=== PATIENT | male | born 1995 | race Caucasian/White ===

== ENCOUNTER → 2020-12-04 14:54 | Outpatient (ROUT) | payer BC, SELFPAY ==
[2020-12-04 16:26] LABS: Urine N gonorrhoeae NOT DETECTED
[2020-12-04 16:44] LABS: Urine Chlamydia NOT DETECTED
== END ==
PROVIDERS: Visit Provider Nurse Practitioner Family
DX: Z13.9 Encounter for screening, unspecified (principal)
CPT/HCPCS: 87491; 87591

== ENCOUNTER → 2020-12-08 15:15 | Outpatient (CLI) | payer BC, SELFPAY ==
[2020-12-09 04:41] LABS: HSV 2 IGG AB < 0.91 index (0.00-0.90); HSV1IGG < 0.91 index (0.00-0.90)
[2020-12-09 16:30] LABS: Hep C Virus Ab w/Reflex Quant NEGATIVE s/c (NEGATIVE); Hepatitis B Surface Antigen NEGATIVE s/c (NEGATIVE)
[2020-12-09 18:17] LABS: HSV I/II IgM <0.91 Ratio (0.00-0.90)
== END ==
PROVIDERS: Referring Provider Nurse Practitioner Family; Visit Provider Nurse Practitioner Family
DX: Z72.51 High risk heterosexual behavior (principal)
CPT/HCPCS: 36415; 86694; 86695; 86696; 86803; 87340

== ENCOUNTER 2021-03-11 14:37 | Emergency (ER) | payer BC, SELFPAY ==
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
[2021-03-11 14:47] VITALS: BP 152/65; PULSE 101; RESP 20; TEMP 36.9; O2SAT 98; BMI 24.5
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
[2021-03-11 16:57] VITALS: BP 128/72; PULSE 79; RESP 20; O2SAT 99
== END 2021-03-11 16:59 | disposition home or self-care (01) ==
PROVIDERS: Emergency Provider Emergency Medicine; PCP Specialist
DX: S16.1XXA Strain of muscle, fascia and tendon at neck level, initial encounter (principal); S30.811A Abrasion of abdominal wall, initial encounter; Z87.891 Personal history of nicotine dependence; V28.0XXA Motorcycle driver injured in noncollision transport accident in nontraffic accident, initial encounter
CPT/HCPCS: 70450; 72125; 99284

== ENCOUNTER → 2021-04-21 15:41 | Outpatient (CLI) | payer BC, SELFPAY ==
[2021-04-21 17:00] LABS: Add Manual Diff / Slide Review NO; Basophils Absolute Auto 100 /uL (0-100); Basophils Percent Auto 0.9 % (0-2); Eosinophils Absolute Auto 100 /uL (0-450); Eosinophils Percent Auto 1.7 % (2-4); Hematocrit 45.8 % (41-53); Hemoglobin 15.6 g/dL (13.5-17.5); Lymphocytes Absolute Auto 3900 /uL (1100-4500); Lymphocytes Percent Auto 46.2 % (25-40); Mean Corpuscular HGB Conc 34.1 % (30-36); Mean Corpuscular Hemoglobin 28.6 PG (26-34); Mean Corpuscular Volume 83.8 fL (80-100); Monocytes Absolute Auto 600 /uL (0-900); Monocytes Percent Auto 6.9 % (3-14); Neutrophils Absolute Auto 3700 /uL (1500-7000); Neutrophils Percent Auto 44.3 % (50-75); Platelet Count 288 X10^3/uL (150-400); Red Blood Cell Count 5.46 X10^6/uL (4.5-5.9); Red Cell Distribution Width 12.4 % (11.6-14.8); White Blood Cell Count 8.4 X10^3/uL (4.5-11.0)
[2021-04-21 17:17] LABS: Alanine Aminotransferase 20 IU/L (<50); Albumin 5.4 g/dL (3.5-5.0); Albumin Globulin Ratio 1.5 (1.0-2.8); Alkaline Phosphatase 56 U/L (38-126); Aspartate Aminotransferase 32 IU/L (17-59); BUN Creatinine Ratio 18.8 (6-22); Bilirubin Total 0.4 mg/dL (0.2-1.3); Blood Urea Nitrogen 19 mg/dL (9-20); Calcium 9.6 mg/dL (8.4-10.2); Carbon Dioxide 26 mmol/L (22-32); Chloride 104 mmol/L (98-107); Estimated Glomerular Filt Rate > 60.0 mL/min (>60); Globulin 3.5 g/dL (1.7-4.1); Glucose 84 mg/dL (70-100); HEMOLYSIS < 15 (0-50); Potassium 3.5 mmol/L (3.4-5.1); Sodium 139 mmol/L (137-145); Total Protein 8.9 g/dL (6.3-8.2)
[2021-04-21 17:46] LABS: Appearance Urine UA CLEAR; Bilirubin Urine UA NEGATIVE (NEGATIVE); Color Urine UA YELLOW; Glucose Urine UA NEGATIVE (Negative); Ketones Urine UA NEGATIVE (NEGATIVE); Leukocyte Esterase Urine UA NEGATIVE (NEGATIVE); Nitrite Urine UA NEGATIVE (Negative); Occult Blood Urine UA NEGATIVE (Negative); Protein Urine UA NEGATIVE (Negative); Specific Gravity Urine UA <=1.005 (1.000-1.035); Urobilinogen Urine UA 0.2 E.U./dL (0.2); pH Urine UA 5.5 (4.5-8.0)
[2021-04-21 17:48] LABS: Testosterone 145 ng/dL (132-813)
[2021-04-21 18:18] LABS: Bacteria Urine None Seen; Culture Indicated Urine Cult Not Indicated; RBC Urine None Seen (0-5/HPF); Thyroid Stimulating Hormone 2.72 uIU/mL (0.47-4.68); Urine Comments Microscopic Normal; WBC Urine None Seen (0-5/HPF)
[2021-04-21 19:14] LABS: Urine N gonorrhoeae NOT DETECTED
[2021-04-21 19:57] LABS: Urine Chlamydia NOT DETECTED
[2021-04-22 08:59] LABS: EBV Virus IgG Ab > 600.0 U/mL (0.0-17.9); EBV Virus IgM Ab < 36.0 U/mL (0.0-35.9); RPR Screen Non Reactive (Non Reactive)
[2021-04-24 20:54] LABS: HIV 1 & 2 Ab/Ag 4th Gen Combo NEGATIVE (NEGATIVE)
[2021-04-25 09:19] LABS: Follicle Stimulating Hormone 5.45 mIU/mL; Luteinizing Hormone 8.98 mIU/mL
== END ==
PROVIDERS: PCP Specialist; Referring Provider Specialist; Visit Provider Specialist
DX: R53.83 Other fatigue (principal)
CPT/HCPCS: 36415; 80053; 81001; 83001; 83002; 84403; 84443; 85025; 86592; 86664; 86665; 87389; 87491; 87591

== ENCOUNTER → 2021-05-12 09:06 | Outpatient (CLI) | payer BC, SELFPAY ==
[2021-05-12 10:28] LABS: Reticulocyte Count, Percent 1.2 % (0.9-2.6)
[2021-05-12 11:17] LABS: HEMOLYSIS < 15 (0-50); Iron 87 ug/dL (49-181)
[2021-05-12 11:27] LABS: Percent Iron Saturation 24 % (20-50); Total Iron Binding Capacity 367 ug/dL (261-462); Transferrin 278 mg/dL (206-381)
[2021-05-12 11:33] LABS: Free T4, Direct Thyroxine 1.07 ng/dL (0.78-2.19)
[2021-05-12 11:47] LABS: Cortisol AM (Before 10AM) 13.3 ug/dL (4.46-22.7)
[2021-05-12 11:52] LABS: Ferritin 64 ng/mL (18-464)
[2021-05-12 12:23] LABS: Folate > 20.0 ng/mL (2.76-20.0)
[2021-05-13 18:35] LABS: Growth Hormone < 0.1 ng/mL (0.0-10.0)
[2021-05-16 06:36] LABS: Testosterone Free 14.46 ng/dL (5.00-21.00); Testosterone Total 301.3 ng/dL (264.0-916.0)
== END ==
PROVIDERS: PCP Specialist; Referring Provider Specialist; Visit Provider Specialist
DX: E29.1 Testicular hypofunction (principal)
CPT/HCPCS: 36415; 82533; 82728; 82746; 83540; 83550; 84270; 84402; 84403; 84439; 85045; 86277

== ENCOUNTER → 2021-06-23 09:21 | Outpatient (CLI) | payer BC, SELFPAY ==
[2021-06-23 10:58] LABS: Testosterone 401 ng/dL (132-813)
== END ==
PROVIDERS: PCP Specialist; Referring Provider Specialist; Visit Provider Specialist
DX: E29.1 Testicular hypofunction (principal)
CPT/HCPCS: 36415; 84403

== ENCOUNTER → 2022-01-28 10:30 | Outpatient (ROUT) | payer BC, SELFPAY ==
[2022-01-28 12:03] LABS: Urine Chlamydia NOT DETECTED; Urine N gonorrhoeae NOT DETECTED
== END ==
PROVIDERS: PCP Specialist; Visit Provider Nurse Practitioner Family
DX: Z11.3 Encounter for screening for infections with a predominantly sexual mode of transmission (principal)
CPT/HCPCS: 87491; 87591

== ENCOUNTER → 2022-04-13 07:20 | Outpatient (CLI) | payer BC, SELFPAY ==
[2022-04-13 09:08] LABS: Hematocrit 46.4 % (41-53); Hemoglobin 15.9 g/dL (13.5-17.5)
[2022-04-13 09:30] LABS: Alanine Aminotransferase 20 IU/L (<50); Albumin 4.5 g/dL (3.5-5.0); Albumin Globulin Ratio 1.6 (1.0-2.8); Alkaline Phosphatase 50 U/L (38-126); Aspartate Aminotransferase 28 IU/L (17-59); BUN Creatinine Ratio 18.8 (6-22); Bilirubin Total 0.5 mg/dL (0.2-1.3); Blood Urea Nitrogen 16 mg/dL (9-20); Carbon Dioxide 27 mmol/L (22-32); Chloride 103 mmol/L (98-107); Estimated Glomerular Filt Rate > 60 mL/min (>60); Globulin 2.9 g/dL (1.7-4.1); Glucose 82 mg/dL (70-100); HEMOLYSIS < 15 (0-50); Potassium 4.4 mmol/L (3.4-5.1); Sodium 141 mmol/L (137-145); Total Protein 7.4 g/dL (6.3-8.2)
[2022-04-13 09:46] LABS: Follicle Stimulating Hormone 4.53 mIU/mL; Luteinizing Hormone 5.43 mIU/mL
[2022-04-13 10:30] LABS: Prolactin 13.9 ng/mL (3.7-17.9)
[2022-04-13 10:44] LABS: Prostate Specific Antigen 0.413 ng/mL (0.10-4.00)
[2022-04-13 15:37] LABS: Ferritin 67 ng/mL (18-464)
[2022-04-29 21:37] LABS: Percent Free Testosterone 2.34 % (1.50-4.20); Testosterone Free 4.68 ng/dL (5.00-21.00)
== END ==
PROVIDERS: PCP Specialist; Referring Provider Internal Medicine Endocrinology, Diabetes & Metabolism; Visit Provider Internal Medicine Endocrinology, Diabetes & Metabolism
DX: E29.1 Testicular hypofunction (principal)
CPT/HCPCS: 36415; 80053; 82728; 83001; 83002; 84146; 84153; 84402; 84403; 85014; 85018

== ENCOUNTER → 2022-04-27 07:35 | Outpatient (CLI) | payer BC, SELFPAY ==
[2022-05-10 07:43] LABS: Percent Free Testosterone 4.82 % (1.50-4.20); Testosterone Free 13.82 ng/dL (5.00-21.00); Testosterone Total 286.8 ng/dL (264.0-916.0)
== END ==
PROVIDERS: PCP Specialist; Referring Provider Internal Medicine Endocrinology, Diabetes & Metabolism; Visit Provider Internal Medicine Endocrinology, Diabetes & Metabolism
DX: E29.1 Testicular hypofunction (principal)
CPT/HCPCS: 36415; 84402; 84403

== ENCOUNTER → 2022-07-20 07:38 | Outpatient (CLI) | payer BC, SELFPAY ==
[2022-07-20 08:01] LABS: Hematocrit 46.7 % (41-53); Hemoglobin 15.6 g/dL (13.5-17.5)
== END ==
PROVIDERS: PCP Specialist; Referring Provider Internal Medicine Endocrinology, Diabetes & Metabolism; Visit Provider Internal Medicine Endocrinology, Diabetes & Metabolism
DX: E29.1 Testicular hypofunction (principal)
CPT/HCPCS: 36415; 85014; 85018

== ENCOUNTER → 2023-03-29 08:01 | Outpatient (CLI) | payer BC, SELFPAY ==
[2023-04-07 15:35] LABS: Percent Free Testosterone 2.64 % (1.50-4.20); Testosterone Free 14.73 ng/dL (5.00-21.00); Testosterone Total 557.9 ng/dL (264.0-916.0)
== END ==
PROVIDERS: PCP Family Medicine; Referring Provider Internal Medicine Endocrinology, Diabetes & Metabolism; Visit Provider Internal Medicine Endocrinology, Diabetes & Metabolism
DX: E29.1 Testicular hypofunction (principal)
CPT/HCPCS: 36415; 84402; 84403

== ENCOUNTER → 2023-05-15 19:50 | Outpatient (ROUT) | payer BC, SELFPAY ==
[2023-05-15 20:50] LABS: Creatinine Urine Random 100.1 mg/dL; Protein (Total) Urine Random < 5 mg/dL (0-12); Protein Creatinine Ratio Urine 0.04 GRAM/24H
== END ==
PROVIDERS: PCP Family Medicine; Visit Provider Family Medicine
DX: R03.0 Elevated blood-pressure reading, without diagnosis of hypertension (principal)
CPT/HCPCS: 82570; 84156

== ENCOUNTER 2023-07-24 13:27 | Emergency (ER) | payer BC, SELFPAY ==
[2023-07-24 13:33] VITALS: BP 162/111; PULSE 71; RESP 16; TEMP 36.4; O2SAT 99; BMI 26.6
[2023-07-24 14:00] LABS: Add Manual Diff / Slide Review NO; Basophils Absolute Auto 100 /uL (0-100); Basophils Percent Auto 1.4 % (0-2); Eosinophils Absolute Auto 200 /uL (0-450); Eosinophils Percent Auto 1.8 % (2-4); Hematocrit 49.8 % (41-53); Hemoglobin 16.9 g/dL (13.5-17.5); Lymphocytes Absolute Auto 2500 /uL (1100-4500); Lymphocytes Percent Auto 24.7 % (25-40); Mean Corpuscular Hemoglobin 28.5 PG (26-34); Monocytes Absolute Auto 600 /uL (0-900); Neutrophils Absolute Auto 6800 /uL (1500-7000); Neutrophils Percent Auto 66.1 % (50-75); Platelet Count 293 X10^3/uL (150-400); Red Blood Cell Count 5.92 X10^6/uL (4.5-5.9); Red Cell Distribution Width 13.3 % (11.6-14.8); White Blood Cell Count 10.3 X10^3/uL (4.5-11.0)
[2023-07-24 14:02] LABS: Alanine Aminotransferase 31 IU/L (<50); Albumin 4.8 g/dL (3.5-5.0); Albumin Globulin Ratio 1.5 (1.0-2.8); Alkaline Phosphatase 54 U/L (38-126); Aspartate Aminotransferase 39 IU/L (17-59); BUN Creatinine Ratio 15.4 (6-22); Bilirubin Total 0.5 mg/dL (0.2-1.3); Blood Urea Nitrogen 16 mg/dL (9-20); Carbon Dioxide 27 mmol/L (22-32); Chloride 106 mmol/L (98-107); Estimated Glomerular Filt Rate > 60 mL/min (>60); Globulin 3.2 g/dL (1.7-4.1); Glucose 92 mg/dL (70-100); HEMOLYSIS 17 (0-50); Lipase 99 U/L (23-300); Potassium 3.9 mmol/L (3.4-5.1); Sodium 142 mmol/L (137-145)
--- NOTE | 2023-07-24 14:53 | PC.NURSE ---
Pt mom called back to ED to make sure staff knew that pt had dark stool thing morning, concerned it could be bleeding.
[2023-07-24 15:47] VITALS: BP 164/92; PULSE 57; RESP 18; TEMP 36.9; O2SAT 98
--- NOTE | 2023-07-24 16:52 | ED_ITS ---
HPI - Abdominal Pain General Chief Complaint: Abdominal Pain Stated Complaint: severe abd pain Time Seen by Provider: 07/24/23 16:49 Source: patient Mode of arrival: Ambulatory History of Present Illness HPI narrative: Patient 28-year-old healthy male who presents today with 2 days lower abdominal pain. He reports that is all across his lower abdomen no nausea or vomiting or fever. But he does not generally have any kind of pain and tolerates it well. He is worried because many family members have had their gallbladder removed. Denies any sort of back pain or radiation to his groin on no painful frequent urination. He has not taken any sort of pain medication at home Related Data Home Medications Medication Instructions Recorded Confirmed clomiphene citrate 50 mg tablet 25 mg PO DAILY 10/23/22 07/24/23 (Clomid) Previous Rx's Medication Instructions Recorded Adderall 20 mg tablet 20 mg PO DAILY #30 tabs 05/15/23 (dextroamphetamine-amphetamine) Adderall 20 mg tablet 20 mg PO DAILY #30 tabs 05/15/23 (dextroamphetamine-amphetamine) Adderall 20 mg tablet 20 mg PO DAILY #30 tabs 05/15/23 (dextroamphetamine-amphetamine) amoxicillin 875 mg-potassium 1 tab PO BID #14 tabs 07/24/23 clavulanate 125 mg tablet Allergies Allergy/AdvReac Type Severity Reaction Status Date / Time No Known Drug Allergies Allergy Verified 07/24/23 13:34 Patient History Social History Smoking Status: Never smoker Tobacco: How many years used: 3 Smokeless tobacco user: chewing tobacco quit status: considering quitting (mentally yes, physically no ) second hand exposure: No alcohol intake: current (20+ drinks on weekends ) substance use type: marijuana (former college ) Smoking Status: Never smoker tobacco type: smokeless tobacco alcohol intake frequency: a few times a week Substance Use Type: does not use Exam Initial Vital Signs Initial Vital Signs: Vital Signs Temperature 97.6 F 07/24/23 13:33 Pulse Rate 71 07/24/23 13:33 Respiratory Rate 16 07/24/23 13:33 Blood Pressure 162/111 H 07/24/23 13:33 Pulse Oximetry 99 07/24/23 13:33 Oxygen Delivery Method Room Air 07/24/23 13:33 GENERAL: Alert well-appearing 28-year-old male and in no acute distress. HEENT: Head atraumatic,EOMI, pupils reactive, face symmetric, moist mucous membranes CARDIOVASCULAR: Regular rate and rhythm without murmurs, rubs or gallops. RESPIRATORY: Breath sounds equal bilaterally, no wheezes rales or rhonchi. ABDOMEN: Soft, right lower quadrant tenderness no guarding or rebound, slightly tender right upper quadrant but really more in the lower : No CVA tenderness EXTREMITIES: Normal range of motion, no clubbing or edema. Neurovascularly intact NEUROLOGICAL: Alert and oriented x4.Normal gait and speech. SKIN: Warm, dry, no laceration, no petechiae, no rashes or lesions. Course Orders Ordered: ED Orders 07/24/23 13:35 EKG-12 Lead Stat 07/24/23 13:40 Complete Blood Count AUTO DIFF Stat Comprehensive Metabolic Panel Stat Lipase Stat 07/24/23 16:53 CT abdomen pelvis w con Stat Ondansetron HCl (Ondansetron 4 Mg/2 Ml Inj) 4 mg IV NOW PRN PRN Reason: Nausea And Vomiting Ondansetron HCl (Ondansetron 4 Mg Odt) 4 mg PO NOW PRN PRN Reason: Nausea And Vomiting Discontinued Medications Piperacillin Sod/Tazobactam (Sod 4.5 gm/ Sodium Chloride) 100 mls @ 200 mls/hr IV NOW ONE Stop: 07/24/23 17:57 Last Admin: 07/24/23 18:10 Dose: 200 mls/hr Documented By: AMBAR Ketorolac Tromethamine (Ketorolac 30 Mg/Ml Vial) 30 mg IV NOW ONE Stop: 07/24/23 16:54 Last Admin: 07/24/23 17:03 Dose: 30 mg Documented By: AMBAR Ondansetron HCl (Ondansetron 4 Mg/2 Ml Inj) 4 mg IV NOW ONE Stop: 07/24/23 16:54 Last Admin: 07/24/23 17:03 Dose: 4 mg Documented By: AMBAR Vital Signs Vital signs: Vital Signs - 8 hr 07/24/23 13:33 07/24/23 15:47 Temperature 97.6 F 98.5 F Pulse Rate 71 57 L Respiratory Rate 16 18 Blood Pressure 162/111 H 164/92 H Pulse Oximetry 99 98 Oxygen Delivery Method Room Air Room Air MDM - Abdominal Pain Lab Data 07/24/23 13:40 07/24/23 13:40 Labs: Lab Results 07/24/23 Range/Units 13:40 WBC 10.3 (4.5-11.0) X10^3/uL RBC 5.92 H (4.5-5.9) X10^6/uL Hgb 16.9 (13.5-17.5) g/dL Hct 49.8 (41-53) % MCV 84.0 (80-100) fL MCH 28.5 (26-34) PG MCHC 34.0 (30-36) % RDW 13.3 (11.6-14.8) % Plt Count 293 (150-400) X10^3/uL Neut % (Auto) 66.1 (50-75) % Lymph % (Auto) 24.7 L (25-40) % [place] % (Auto) 6.0 (3-14) % Eos % (Auto) 1.8 L (2-4) % Baso % (Auto) 1.4 (0-2) % Neut # (Auto) 6800 (0270-9247) /uL Lymph # (Auto) 2500 (9130-8759) /uL [place] # (Auto) 600 (0-900) /uL Eos # (Auto) 200 (0-450) /uL Baso # (Auto) 100 (0-100) /uL Sodium 142 (137-145) mmol/L Potassium 3.9 (3.4-5.1) mmol/L Chloride 106 (98-107) mmol/L Carbon Dioxide 27 (22-32) mmol/L BUN 16 (9-20) mg/dL Creatinine 1.04 (0.66-1.25) mg/dL Estimated GFR > 60 (>60) mL/min BUN/Creatinine Ratio 15.4 (6-22) Glucose 92 (70-100) mg/dL Calcium 9.0 (8.4-10.2) mg/dL Total Bilirubin 0.5 (0.2-1.3) mg/dL AST 39 (17-59) IU/L ALT 31 (<50) IU/L Alkaline Phosphatase 54 (38-126) U/L Total Protein 8.0 (6.3-8.2) g/dL Albumin 4.8 (3.5-5.0) g/dL Globulin 3.2 (1.7-4.1) g/dL Albumin/Globulin Ratio 1.5 (1.0-2.8) Lipase 99 (23-300) U/L Point of care testing: Urine Dip Bedside Urine Glucose Negative Bedside Urine Bilirubin - Negative Bedside Urine Ketone - Negative Urine Specific [place] 1.020 Bedside Urine Occult Blood - Negative Bedside Urine pH 6.0 Bedside Urine Protein - Negative Bedside Urine Urobilinogen - Negative Bedside Urine Nitrite - Negative Bedside Urine Leukocytes - Negative Esterase Imaging Data CT scan - abdomen/pelvis: Radiologist's Impression: PROCEDURE: CT ABDOMEN PELVIS W CON INDICATIONS: RLQ pain TECHNIQUE: After the administration of intravenous contrast, axial sections acquired from the lung bases to the pubic symphysis. Coronal and sagittal reformats were performed. For radiation dose reduction, the following was used: automated exposure control, adjustment of mA and/or kV according to patient size. COMPARISON: None. FINDINGS: Image quality: Suboptimal due to motion artifact. Lower Chest: No significant findings. ABDOMEN: Liver: No solid mass. Gallbladder: No radiopaque gallstones or wall thickening. Biliary ducts: No biliary dilation. Pancreas: No ductal dilation. Spleen: Size is within normal limits. Adrenal Glands: No adrenal nodules. Kidneys and Ureters: No hydronephrosis. No solid mass. No complex renal cystic lesion which requires follow up. Stomach and Bowel: Normal colonic caliber, without significant wall thickening. The appendix is mildly distended, measuring up to 1.1 centimeter. There is trace periappendiceal fat stranding at the base. Peritoneum: Trace free fluid in the pelvis. Ventral Wall: No significant ventral hernia. Abdominal Nodes: No retroperitoneal or mesenteric adenopathy by size criteria. Vessels: Aorta and inferior vena cava are normal in size. PELVIS: Pelvic Organs: Unremarkable. Bladder: No bladder wall thickening, accounting for underdistention. Pelvic Nodes: No enlarged lymph nodes. Miscellaneous: No inguinal hernias are seen. Bones: No aggressive osseous abnormality. IMPRESSION: Suspected early acute appendicitis, with an elongated and mildly dilated appendix with trace periappendiceal fat stranding. No evidence of perforation. Dictated by: Garfield Sood M.D. on 07/24/2023 at 17:45 MDM Narrative Medical decision making narrative: Patient healthy 28-year-old male presents today with right lower quadrant pain. CT head confirms early acute appendicitis. He has no leukocytosis and blood work is overall reassuring. He has given a dose of Zosyn and Toradol. Toradol has completely resolved his pain and overall feels significantly better. Discussed with patient he really does not want surgery if it can be avoided but is willing to have surgery if needed. He would like to try a course of antibiotics 1899 Dr. Jones updated patient's symptoms test results and wishes to try antibiotics. We discussed options of observation with IV antibiotics versus discharge home on Augmentin. At this time patient does not have fever or leukocytosis pain improved with Toradol is reasonable to try him home on Augmentin for 5 days. I discussed warning signs with patient and mother and when to return to the ED. He understands that he will continue to have some pain but it should start improving with antibiotics. He understands when he should return. Discharge Plan Departure Patient Disposition: Home Clinical Impression: Acute appendicitis Instructions: Appendicitis Activity Restrictions/Additional Instructions: *You have been diagnosed with appendicitis *What to do: At this time it is reasonable to start on antibiotics and see how you do over the next 3-5 days. However there is still a chance that you may require surgery. *Continue to take medications as directed Augmentin 875 twice a day for 7 days Tylenol 1000 mg every 6 hours for [id number] pain Motrin 400 mg every 6 hours for kfrd-[id number] pain *Follow up with your primary care provider in 2-3 days or call [phone] *Return to ER if you should have pain not controlled with Tylenol or Motrin, fever persistent vomiting or any new, worsening or concerning symptoms Prescriptions: New amoxicillin-pot clavulanate 875-125 mg tablet 1 tab PO BID Qty: 14 0RF No Action clomiphene citrate [Clomid] 50 mg tablet 25 mg PO DAILY dextroamphetamine-amphetamine [Adderall] 20 mg tablet 20 mg PO DAILY Qty: 30 0RF Hold Instructions: Patient Request dextroamphetamine-amphetamine [Adderall] 20 mg tablet 20 mg PO DAILY Qty: 30 0RF Hold Instructions: Patient request Rx Instructions: 2 of 3 dextroamphetamine-amphetamine [Adderall] 20 mg tablet 20 mg PO DAILY Qty: 30 0RF Hold Instructions: Patient request Rx Instructions: 04/13 Referrals: Weeks,Eufemia, DO [Primary Care Provider] - Stand Alone Forms: Patient Portal/API
[2023-07-24] MEDS: KETOROLAC 30 MG/ML VIAL IV (17:03)
[2023-07-24] MEDS: ONDANSETRON 4 MG/2 ML INJ IV (17:03)
[2023-07-24] MEDS: PIPERACILLIN/TAZO 4.5 GM in SODIUM CHLORIDE 0.9% 100 ML IV (18:10)
[2023-07-24 19:19] VITALS: BP 151/81; PULSE 60; RESP 20; TEMP 36.4; O2SAT 98
== END 2023-07-24 19:21 | disposition home or self-care (01) ==
PROVIDERS: Emergency Provider Emergency Medicine; PCP Family Medicine
DX: K35.80 Unspecified acute appendicitis (principal); R10.31 Right lower quadrant pain
CPT/HCPCS: 36415; 74177; 80053; 81003; 83690; 85025; 96365; 96375; 99284; J1885; J2405; J2543

== ENCOUNTER → 2023-08-20 16:13 | Outpatient (CLI) | payer BC, SELFPAY | PROVIDERS: PCP Family Medicine; Referring Provider Internal Medicine Endocrinology, Diabetes & Metabolism; Visit Provider Internal Medicine Endocrinology, Diabetes & Metabolism | DX: E29.1 Testicular hypofunction (principal) | CPT/HCPCS: 36415; 84402; 84403 ==

== ENCOUNTER → 2024-06-19 08:48 | Outpatient (CLI) | payer BC, SELFPAY ==
[2024-06-19 09:23] LABS: Hematocrit 46.2 % (41-53); Hemoglobin 15.6 g/dL (13.5-17.5); Mean Corpuscular HGB Conc 33.7 % (30-36); Mean Corpuscular Hemoglobin 28.8 PG (26-34); Mean Corpuscular Volume 85.5 fL (80-100); Platelet Count 257 X10^3/uL (150-400); Red Cell Distribution Width 12.8 % (11.6-14.8); White Blood Cell Count 4.3 X10^3/uL (4.5-11.0)
[2024-06-19 09:55] LABS: Alanine Aminotransferase 31 IU/L (<50); Albumin 4.4 g/dL (3.5-5.0); Albumin Globulin Ratio 1.8 (1.0-2.8); Alkaline Phosphatase 52 U/L (38-126); Aspartate Aminotransferase 33 IU/L (17-59); Bilirubin Total 0.3 mg/dL (0.2-1.3); Blood Urea Nitrogen 21 mg/dL (9-20); Carbon Dioxide 25 mmol/L (22-32); Chloride 107 mmol/L (98-107); Estimated Glomerular Filt Rate > 60 mL/min (>60); Globulin 2.5 g/dL (1.7-4.1); Glucose 91 mg/dL (70-99); HEMOLYSIS < 15 (0-50); Potassium 4.5 mmol/L (3.4-5.1); Sodium 141 mmol/L (137-145); Total Protein 6.9 g/dL (6.3-8.2)
[2024-06-19 10:29] LABS: Estradiol, Total 20.5 pg/mL
== END ==
PROVIDERS: PCP Family Medicine; Referring Provider Family Medicine; Visit Provider Family Medicine
DX: Z00.00 Encounter for general adult medical examination without abnormal findings (principal); R79.89 Other specified abnormal findings of blood chemistry; F98.8 Other specified behavioral and emotional disorders with onset usually occurring in childhood and adolescence; M25.561 Pain in right knee; M25.562 Pain in left knee
CPT/HCPCS: 36415; 80053; 82670; 84402; 84403; 85027

== ENCOUNTER 2024-07-06 07:15 | Emergency (ER) | payer BC, SELFPAY ==
[2024-07-06] VITALS (26 sets, daily range): BP systolic 156–242; BP diastolic 80–108; PULSE 50–88; RESP 17–32; TEMP 36.4; O2SAT 93–100; BMI 27.4
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
[2024-07-06] MEDS: HYDROMORPHONE 1 MG INJ IM (07:41)
--- NOTE | 2024-07-06 08:13 | ED_ITS ---
HPI - Extremity Injury (Upper) General Chief Complaint: Extremity Injury, Upper Stated Complaint: dislocated shoulder Time Seen by Provider: 07/06/24 07:39 Source: patient Mode of arrival: Ambulatory History of Present Illness HPI narrative: 29-year-old male with history of ADHD on Adderral, history of remote left shoulder dislocation and surgical repair 12 years ago, last week playing sports ran into a fence, suspected clinical dislocation, had his friends reduce it, also had bruising to left lateral thigh, was not medically evaluated at that time, slept overnight, this morning had his hand over head as he rolled over, felt popping pain sensation left shoulder, persisting pain, concerned for another left shoulder dislocation. No other injuries from the sports injury hitting against a wall. No LOC, no headache, no neck or back pain, no other extremity injuries. Related Data Previous Rx's Medication Instructions Recorded nystatin 100,000 unit/gram topical 1 applic topical DAILY PRN rash 12/10/23 cream #15 grams naproxen 500 mg tablet 500 mg PO BID PRN pain #40 tabs 03/24/24 Adderall 20 mg tablet 20 mg PO .COMPLEX #45 tabs 06/24/24 (dextroamphetamine-amphetamine) Adderall 20 mg tablet 20 mg PO .COMPLEX #45 tabs 06/24/24 (dextroamphetamine-amphetamine) Adderall 20 mg tablet 20 mg PO .COMPLEX #45 tabs 06/24/24 (dextroamphetamine-amphetamine) clomiphene citrate 50 mg tablet 25 mg (1/2 x 50 mg) PO DAILY #45 06/24/24 (Clomid) tabs Allergies Allergy/AdvReac Type Severity Reaction Status Date / Time No Known Drug Allergies Allergy Verified 06/24/24 12:21 Patient History Medical History (Updated 07/06/24 @ 09:53 by Dago Licona MD) Rectal pain Social History Smoking Status: Former smoker Tobacco: How many years used: 3 Smokeless tobacco user: chewing tobacco quit status: considering quitting second hand exposure: No alcohol intake: current substance use type: marijuana Smoking Status: Former smoker tobacco type: smokeless tobacco alcohol intake frequency: a few times a week Exam Narrative Exam Narrative: GENERAL: Well-developed patient, in mild distress. HEAD: Atraumatic. Normocephalic. EYES: Pupils equal round and reactive. Extraocular motions intact. No scleral icterus. No injection or drainage. ENT: Nose without bleeding, purulent drainage. Throat without erythema, tonsillar hypertrophy or exudate. Airway patent. NECK: Trachea midline. Non tender CARDIOVASCULAR: Regular rate and rhythm without murmurs, gallops, or rubs. RESPIRATORY: Clear to auscultation. Breath sounds equal bilaterally. No wheezes, rales, or rhonchi. GASTROINTESTINAL: Abdomen soft, non-tender, nondistended. EXTREMITIES: Left anterior shoulder fullness with stepoff, suspected shoulder dislocation, no other LUE extremity areas deformity or tenderness, no areas swelling. Left lateral thigh with hematoma superfical, normal range motion knee ankle foot thigh. BACK: Nontender without deformity or crepitance. No flank tenderness. NEURO: AOx3. Grossly nonfocal, limited LUE due to shoulder injury. SKIN: No rash or erythema of visible areas Initial Vital Signs Initial Vital Signs: Vital Signs Blood Pressure 167/100 H 07/06/24 07:32 Procedures Orthopedic Joint Reduction Joint #1: Time of procedure: 09:46 Time Out Performed: Yes Side: left Joint Reduction Location: shoulder Analgesia: procedural sedation Shoulder Technique Used (if applicable): external rotation Technique used: direct manipulation Post-reduction neuro exam: intact Post-reduction vascular: intact Post Reduction X-Ray Obtained: Yes Post Reduction X-Ray Results: reduced Splint Applied: Yes Patient Tolerated Procedure: Well Additional Comments: [place] technique (external rotation, adduction, internal rotation) single attempt closed reduction after IV sedation with propofol/ketamine, adequate sedation with the addition of ketamine after maximum 200 mg propofol inadequate effect, tolerated reduction well with palpable and visible reduction, no longer having anterior full this, placed into sling while still sedated given his history of easy dislocation. X-ray performed after sling placed, appears to be reduced, no obvious fractures. Tolerated well. Returned to preprocedural baseline. Procedural Sedation Time of procedure: 09:17 Consent signed: Yes Time out performed: Yes Indication: fracture/dislocation reduction ASA Class: I Mallampati Airway Classification: Class I Time of Last PO Intake: 18:00 Ketamine: IV Ketamine dose (mg): 100 IV Propofol dose (mg): 200 Patient Tolerated Procedure: Well Complications: none Additional Comments: Insufficient sedation with propofol up to 200 mg, IV ketamine 100 mg given for reduction with good effect. Course Orders Ordered: Discontinued Medications Hydromorphone HCl (Hydromorphone 1 Mg Inj) 1 mg IM NOW ONE Stop: 07/06/24 07:39 Last Admin: 07/06/24 07:41 Dose: 1 mg Documented By: RB Sodium Chloride (Normal Saline 0.9%) 1,000 mls @ 1,000 mls/hr IV BOLUS ONE Stop: 07/06/24 09:49 Last Infusion: 07/06/24 10:05 Dose: Infused Documented By: Admin: 07/06/24 08:52 Dose: 1,000 mls/hr Documented By: RB Ketamine HCl (Ketamine 500 Mg/5 Ml Inj) 100 mg IV NOW ONE Stop: 07/06/24 09:00 Last Admin: 07/06/24 09:02 Dose: 100 mg Documented By: RB Ondansetron HCl (Ondansetron 4 Mg/2 Ml Inj) 4 mg IV NOW ONE Stop: 07/06/24 09:06 Last Admin: 07/06/24 09:08 Dose: 4 mg Documented By: RB Propofol (Propofol 200 Mg/20 Ml Vial) 200 mg IV NOW ONE Stop: 07/06/24 08:41 Last Admin: 07/06/24 08:52 Dose: 200 mg Documented By: RB Vital Signs Vital signs: Vital Signs - 8 hr 07/06/24 07:32 07/06/24 07:33 07/06/24 07:34 Temperature 97.5 F L Pulse Rate 60 62 Respiratory Rate 24 Blood Pressure 167/100 H 167/100 H Pulse Oximetry 93 95 Oxygen Delivery Method Room Air 07/06/24 08:07 07/06/24 08:09 07/06/24 08:09 Temperature Pulse Rate 55 L 55 L Respiratory Rate 17 Blood Pressure 179/108 H Pulse Oximetry 99 97 Oxygen Delivery Method 07/06/24 08:30 07/06/24 08:32 07/06/24 08:32 Temperature Pulse Rate 50 L 57 L Respiratory Rate 22 19 Blood Pressure 196/92 H Pulse Oximetry 97 98 Oxygen Delivery Method 07/06/24 08:51 07/06/24 08:51 07/06/24 08:55 Temperature Pulse Rate 58 L 70 Respiratory Rate 19 23 Blood Pressure 190/98 H Pulse Oximetry 100 Oxygen Delivery Method 07/06/24 08:56 07/06/24 08:56 07/06/24 09:00 Temperature Pulse Rate 75 76 Respiratory Rate 27 H 25 H Blood Pressure 242/108 H Pulse Oximetry 96 Oxygen Delivery Method Room Air 07/06/24 09:01 07/06/24 09:01 07/06/24 09:05 Temperature Pulse Rate 70 79 Respiratory Rate 24 32 H Blood Pressure 159/108 H Pulse Oximetry 95 96 Oxygen Delivery Method Room Air 07/06/24 09:06 07/06/24 09:06 07/06/24 09:10 Temperature Pulse Rate 82 Respiratory Rate 30 H Blood Pressure 167/84 H 173/82 H Pulse Oximetry 98 Oxygen Delivery Method 07/06/24 09:10 07/06/24 09:12 07/06/24 09:15 Temperature Pulse Rate 88 87 Respiratory Rate 24 18 24 Blood Pressure Pulse Oximetry 100 99 Oxygen Delivery Method 07/06/24 09:15 07/06/24 09:20 07/06/24 09:20 Temperature Pulse Rate 62 Respiratory Rate 22 Blood Pressure 182/89 H 178/93 H Pulse Oximetry 100 Oxygen Delivery Method 07/06/24 09:25 07/06/24 09:25 07/06/24 09:30 Temperature Pulse Rate 53 L 52 L Respiratory Rate 19 19 Blood Pressure 191/99 H Pulse Oximetry 100 100 Oxygen Delivery Method 07/06/24 09:30 07/06/24 09:35 07/06/24 09:35 Temperature Pulse Rate 53 L Respiratory Rate 18 Blood Pressure 182/95 H 178/94 H Pulse Oximetry 100 Oxygen Delivery Method MDM - Extremity Injury (Upper) Imaging Data Extremity x-ray #1: Radiologist's Impression: [address] [address] XRay Report Signed Patient: Kin Ramirez MR#: [id number] : 1995 Acct:[id number] Age/Sex: 29 / M Date of Service: 07/06/24 Loc: ED Accession Number: [id number] Procedure: XR shoulder LT 2+ views Ordering Provider: Dago Licona MD PROCEDURE: XR SHOULDER LT MIN 2V INDICATIONS: dislocated last saturday rolled on it this morning pain TECHNIQUE: 3 views of the shoulder were acquired. COMPARISON: None. FINDINGS AND IMPRESSION: Anterior inferior glenohumeral dislocation. Post reduction images suggested to look for any underlying fracture. No suspicious soft tissue calcifications. Dictated by: Glen Nicolas M.D. on 07/06/2024 at 8:48 Approved by: Glen Nicolas M.D. on 07/06/2024 at 8:49 Extremity x-ray #2: Radiologist's Impression: [address] [address] XRay Report Signed Patient: Kin Ramirez MR#: [id number] : 1995 Acct:[id number] Age/Sex: 29 / M Date of Service: 07/06/24 Loc: ED Accession Number: [id number] Procedure: XR shoulder LT 1V Ordering Provider: Dago Licona MD PROCEDURE: XR SHOULDER LT 1V INDICATIONS: Post procedral sedation TECHNIQUE: One view of the shoulder were acquired. COMPARISON: [facility], CR, XR SHOULDER LT 2+ VIEWS, 07/06/2024, 7:36. FINDINGS: Bones: Status post glenohumeral reduction. Alignment appears improved on this single oblique image. No obvious fracture identified although the bones are not well assessed on this exam. Soft tissues: No suspicious soft tissue calcifications. IMPRESSION: Status post glenohumeral reduction with apparent sabianist of normal alignment on this single image. Approved by: Alvino Montez M.D. on 07/06/2024 at 8:31 MDM Narrative Medical decision making narrative: 29-year-old male with history of ADHD on Adderall, prior left shoulder dislocation and surgery remote, recent sports playing injury with direct blow felt to be dislocated and relocated on the field, overnight sleeping position reached overhead and felt shoulder popped out, could not reduce it himself. Anterior fullness left shoulder, step-off, likely anterior shoulder dislocation clinically. X-ray confirms. No definite fractures. Consented for sedation, IV propofol boluses to maximum 200mg, still had inadequate muscle relaxation before attempt, added IV ketamine, good muscle relaxation, single external rotation technique, palpable and visible reduction. Placed in sling while still sedated, cinched to prevent subluxation given history of recurrent dislocation. Postreduction x-ray adequate in sling. IV Zofran given to prevent emergence nausea or vomiting from ketamine. No retching or vomiting. Returned to preprocedure/sedation baseline mental status. Able to take oral fluids. Tolerated procedure well. Discharged home with family at bedside. Follow up with Orthopedic surgery advised. Contact information given for local orthopedic surgeon on-call. Advised to keep in the sling and avoid flexion maneuvers as he might easily re-dislocate by history. Home with family. Return precautions discussed. Discharge Plan Departure Patient Disposition: Home Clinical Impression: Anterior shoulder dislocation, Contusion of left thigh Activity Restrictions/Additional Instructions: History of remote left shoulder dislocation in surgery, more recent sports injury impact with reported suspected dislocation that was relocated in the field, rolling over this morning felt pop and shoulder pain left shoulder suspicious for dislocation. Confirmed by x-ray. No definite fracture seen. IV sedation for relocation was tolerated well, you happened to not respond adequately to full-dose propofol, addition of IV ketamine, adequate muscle relaxation, single reduction technique external rotation. Placed in a sling to help prevent dislocation while you are still quite sedated. X-ray confirmed relocation, no mention of definite fracture. That joint might be quite weekend with your history of recurrent dislocations and recent injury. Consider orthopedic surgery follow up. Wear sling until follow up. Follow up with Orthopedic surgery later this week or early next week. Return earlier to this/nearest emergency department for any change worsening symptoms or any concerns prior. Prescriptions: No Action nystatin 100,000 unit/gram cream 1 applic topical DAILY PRN (Reason: rash) Qty: 15 0RF Rx Instructions: NYSTATIN CREAM 15GM APPLY TOPICALLY TO THE AFFECTED AREA TWICE DAILY FOR 2 WEEKS naproxen 500 mg tablet 500 mg PO BID PRN (Reason: pain) Qty: 40 0RF clomiphene citrate [Clomid] 50 mg tablet 25 mg PO DAILY Qty: 45 1RF Hold Instructions: pt preference dextroamphetamine-amphetamine [Adderall] 20 mg tablet 20 mg PO .COMPLEX Qty: 45 0RF Hold Instructions: Patient Request Rx Instructions: 20 mg orally in the morning, 10mg in the afternoon; dextroamphetamine-amphetamine [Adderall] 20 mg tablet 20 mg PO .COMPLEX Qty: 45 0RF Hold Instructions: Patient request Rx Instructions: 20 mg orally in the morning, 10mg in the afternoon; 2 of 3 dextroamphetamine-amphetamine [Adderall] 20 mg tablet 20 mg PO .COMPLEX Qty: 45 0RF Hold Instructions: Patient request Rx Instructions: 20 mg orally in the morning, 10mg in the afternoon; 3 Referrals: Hossein Ashby MD [Physician] - Eufemia Mondragon DO [Primary Care Provider] - Stand Alone Forms: Patient Portal/API/Survey
[2024-07-06] MEDS: propofoL 200 MG/20 ML VIAL IV (08:52)
[2024-07-06] MEDS: SODIUM CHLORIDE 0.9% 1,000 ML 1000 ML IV (08:52)
[2024-07-06] MEDS: KETAMINE 500 MG/5 ML INJ 100 MG IV (09:02)
--- NOTE | 2024-07-06 09:03 | DI.RAD.S_ITS ---
PROCEDURE: XR SHOULDER LT 1V INDICATIONS: Post procedral sedation TECHNIQUE: One view of the shoulder were acquired. COMPARISON: [facility], CR, XR SHOULDER LT 2+ VIEWS, 07/06/2024, 7:36. FINDINGS: Bones: Status post glenohumeral reduction. Alignment appears improved on this single oblique image. No obvious fracture identified although the bones are not well assessed on this exam. Soft tissues: No suspicious soft tissue calcifications. IMPRESSION: Status post glenohumeral reduction with apparent scientologist of normal alignment on this single image. Approved by: Alvino Montez M.D. on 07/06/2024 at 8:31
[2024-07-06] MEDS: ONDANSETRON 4 MG/2 ML INJ IV (09:08)
--- NOTE | 2024-07-06 10:18 | PC.NURSE ---
Patient was able to successfully swallow water and keep it down and was able to independently ambulate prior to discharge.
== END 2024-07-06 10:17 | disposition home or self-care (01) ==
PROVIDERS: Emergency Provider Emergency Medicine; PCP Family Medicine
DX: S43.005A Unspecified dislocation of left shoulder joint, initial encounter (principal); S70.12XA Contusion of left thigh, initial encounter; X50.1XXA Overexertion from prolonged static or awkward postures, initial encounter
CPT/HCPCS: 23650; 36415; 73020; 73030; 96361; 96372; 96374; 99152; 99153; 99285; J1171; J2405; J2704

== ENCOUNTER → 2024-07-10 13:47 | Outpatient (CLI) | payer BC, SELFPAY ==
--- NOTE | 2024-07-10 13:47 | DI.MRI.S_ITS ---
PROCEDURE: MR SHOULDER LT WO CON INDICATIONS: left shoulder instability after labral repair TECHNIQUE: Noncontrast oblique coronal T2 fast spin echo with fat saturation, oblique sagittal T1 spin echo and T2 fast spin echo with fat saturation, axial T1 spin echo and T2 fast spin echo with fat saturation through the shoulder. COMPARISON: [facility], CR, XR SHOULDER LT 2+ VIEWS, 07/06/2024, 7:36. [facility], CR, XR SHOULDER LT 1V, 07/06/2024, 8:57. Outside Facility, MR, MR SHOULDER LT W CON, 10/18/2015, 15:58. FINDINGS: Image quality: Excellent. Rotator cuff: The supraspinatus, infraspinatus, and subscapularis tendons appear intact throughout. Sagittal images demonstrate no muscle atrophy. Bones and bursae: There is a bony contusion and deformity involving the greater tuberosity most likely from previous dislocation. There is an inferior-anterior glenoid subacute mildly displaced corner fracture. Capsule and soft tissues: There is a superior anterior labral tear. Coracohumeral ligaments intact. Glenohumeral ligaments are unremarkable. Biceps tendon is unremarkable. 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 Slap lesion. Rotator cuff appears intact. Dictated by: Zara Wallis M.D. on 07/10/2024 at 14:45 Approved by: Zraa Wallis M.D. on 07/10/2024 at 15:05
== END ==
PROVIDERS: PCP Family Medicine; Referring Provider Orthopaedic Surgery; Visit Provider Orthopaedic Surgery
DX: S43.015A Anterior dislocation of left humerus, initial encounter (principal); S42.292A Other displaced fracture of upper end of left humerus, initial encounter for closed fracture; S43.432A Superior glenoid labrum lesion of left shoulder, initial encounter
CPT/HCPCS: 73221

== ENCOUNTER 2024-09-11 09:00 | Outpatient (RCR) | payer OTHER, SELFPAY ==
--- NOTE | 2024-08-12 18:36 | OT.OPPOC ---
Physical, Occupational & Speech Therapy At [facility] Kin Ramirez [id number] 1995 Visit Care Team Role Provider Type Eufemia Mondragon DO Attending Provider Physician Family Provider Primary Care Provider Referring Provider Address: [address] [place] [address], [address], [place], [address] Occupational Therapy Plan of Care OT Outpatient Adult Evaluation Start: 08/12/24 12:15 Freq: Status: Active Protocol: Document 08/12/24 15:15 (Rec: 08/12/24 12:36 [id number]) General Information - Adult Visit Information Visit Number 1 of 10 Plan of Care Dates 08/12/24-10/21/24 Insurance no pre-auth;no copay/deductible;max 12 OT visits, Information including 1 OT eval Session Time Visit Start Date 08/12/24 Visit Start Time 16:10 Visit Stop Time 17:10 Setting Treatment Setting Outpatient Care Visit Type Note Type Initial Evaluation Referral Referring Physician Dr. Eufemia Mondragon Reason for Referral Recurrent dislocation of left shoulder joint Precautions None provided, will clarify with provider Identification Identification Yes Confirmed Identification EMR Confirmed By Medical Information Medical History h/o L shoulder labral tear 7 years ago, pt reports 3 dislocations of L shoulder Social Information Social History I am very motivated to do whatever I need to do to avoid surgery Patient Questionnaires Quick Dash- Upper Extremity Quick Dash UE Score 27.3 Quick Dash UE 20 to 39% Impaired (Score 20-39) Impairment Quick Dash- Work and Sports Modules Quick Dash W&S Score W: 25, S: 37.5 Quick Dash Work and 20 to 39% Impaired (Score 20-39) Sport Impairment OT Outpatient Observations Observations Observations On examination, patient demonstrates full active range of motion of the left shoulder without compensatory strategies, and gross strength is 5/5 in all planes with no pain reported at rest or during testing. No visible deformity, swelling, or muscle guarding noted. Patient reports intermittent episodes of sharp discomfort or instability during spontaneous movements, particularly in overhead or externally rotated positions. QuickDASH scores indicate mild to moderate disability: 27.3 (general), 25 (work), and 37.5 (sports ). He currently works in construction and does not have an option for modified or light duty work; he reports engaging in regular activities aside from avoiding heavy lifting or positions that feel ?unstable.? Patient has been independently performing pendulum exercises, scapular retraction, and wall slides. Swelling Severity None Goals Treatment Treatment Patient was educated on shoulder joint anatomy and the nature of anterior instability, including the significance of recent MRI findings (Bankart lesion, Hill-Sachs deformity, and SLAP tear). Emphasis was placed on the importance of joint protection, especially while tissues are still in the acute and healing phase, and clarification was provided regarding the difference between muscular strength and dynamic joint stability. Education addressed how continued high -level activity, despite full strength, could lead to further structural compromise if not paired with proper neuromuscular re-education. Therapist introduced and demonstrated isometric exercises in neutral (shoulder flexion, adduction, IR, and ER), as well as closed- chain proprioceptive activity ([id number] stability drill), all performed with appropriate technique and good tolerance. Therapist reviewed risk-prone joint positions (e.g., overhead combined with external rotation) and advised caution in work and sport- specific tasks. Patient demonstrated good carryover and understanding with moderate verbal reinforcement and agreed to adhere to a modified HEP designed to promote capsular stability. Short Term Goals Short Term Goals 1. Patient will demonstrate proper performance of a home isometric stabilization program (including IR, ER, flexion, adduction in neutral) independently, in order to improve neuromuscular control and minimize anterior joint stress during daily activities within 5 weeks. 2. Patient will tolerate AROM of the left shoulder to = 140? flexion and =120? abduction with pain </=2/10 and without signs of instability or compensatory movement patterns to support basic self-care and work-related reaching tasks within 5 weeks. 3. Patient will verbalize understanding of 3+ provocative shoulder positions (e.g., abduction with external rotation) and demonstrate appropriate joint protection strategies during simulated work or daily tasks with 100% accuracy within 5 weeks. Financial Developer Goals Financial Developer Goals 1. Patient will engage in moderate-load simulated job tasks (e.g., lifting, pushing, pulling <25 lbs at waist to chest height) with proper biomechanics and joint positioning, without symptom provocation or apprehension within 10 weeks. 2. Patient will report perceived increase in independence during functional use of the shoulder and reduced fear of instability during work and recreational activities as demonstrated by a quickDASH score of </=15 for all areas within 10 weeks. Assessment/Plan Assessment Patient Response Good Rehabilitation Good Potential Impairments Body Mechanics,Functional Activities,Motor Function, Identified Pain,Range of Motion,Recreational Activities,Meaningful Activities,Insight,Work Capacity,Soft Tissue Mobility Treatment Assessment 29 year old [id number] male referred by Dr. Fall Weeks after recent recurrent L shoulder dislocations on 06/28 and 07/06. Pt with a history of left shoulder labral repair in 2017, presenting today approximately 3 weeks post-anterior dislocation sustained during a baseball slide, followed by a second dislocation one week later while sleeping in prone. Pt with recurrent anterior shoulder instability following two recent dislocations and pt reporting a remote dislocation prior, one of which occurred during low- load activity (sleeping), highlighting the underlying capsular laxity and labral compromise. MRI confirms a Bankart lesion, Hill-Sachs deformity, and SLAP tear, placing the joint at high risk for future dislocations if not properly rehabilitated. While gross strength and range of motion are currently intact, the patient reports functional apprehension and positional pain consistent with capsulolabral instability. Despite returning to full activity without formal therapy or physician-directed restrictions, patient is now seeking conservative intervention to avoid surgical repair. Given his physically demanding occupation and lack of activity modification, skilled OT is medically necessary to provide joint-protective education, neuromuscular re-education, proprioceptive retraining, and a graded stabilization program to prevent re-injury . Patient demonstrated insight into the risks after education, and therapeutic goals will focus on promoting joint congruency, improving dynamic shoulder stability, and preventing dislocation during work and sport. Continued skilled OT intervention is warranted to ensure appropriate progression and to facilitate safe reintegration into high-demand functional roles while minimizing risk of further labral or capsular compromise. Home Exercise Pendulum exercises, table slides, wall slides, shoulder Program squeezes, Isometric shoulder flexion/abduction/ internal rotation/external rotation, ball on wall prop ex. Reviewed with Goals,Progress Being Made,Home Exercise Program Patient Patient Fair Understanding Plan Length of treatment 10 (weeks) Plan of Care Start 08/12/24 Date Plan of Care End 10/21/24 Date Treatment Frequency Once a Week Treatment Duration 45 Minutes Therapeutic Contents Active Range of Motion,Client Education,Functional Activities,Home Exercise Program,Joint Protection, Manual Therapy,Education,Neuromuscular Re-Education, Self-Care,Stretching/Flexibility Activities,Therapeutic Activities,Therapeutic Exercises,Modalities Modalities As Needed Types of Modalities Ice Massage,Other Additional Types of MHP, KT tape Modalities Patient Instruction Home Exercise Program,Plan of Care,Questions/Concerns Patient Continue with Current Program Recommendations Electronically Signed by: Sandee Linares OT 08/12/24 6311 If you are in agreement with this Plan of Care, please return a signed and dated copy. I have reviewed this Plan of Care and certify that the skilled therapy services above are required to meet the patient?s needs. Physician Signature Date Printed Name and Credentials Clinical Instructor Signature Printed Name and Credentials
--- NOTE | 2024-08-21 17:27 | OT.OP.TRT ---
Visit Care Team Role Provider Type Eufemia Mondragon DO Attending Provider Physician Family Provider Primary Care Provider Referring Provider Specialty: Medical Address: [address] [place] [address], [address], [place], [address] Email: [email or web address] Occupational Therapy Treatment Note OT Outpatient Treatment Note - Adult Start: 08/12/24 12:15 Freq: Status: Active Protocol: Document 08/21/24 13:45 (Rec: 08/21/24 08:58 [id number]) OT Outpatient Adult Treatment Note Session Time Visit Start Date 08/21/24 Visit Start Time 13:45 Visit Stop Time 14:30 Visit Information Visit Number 2 of 10 Plan of Care Dates 08/12/24-10/21/24 Insurance no pre-auth;no copay/deductible;max 12 OT visits Information Setting Treatment Setting Outpatient Care Visit Type Note Type Initial Evaluation - Subjective Identification Type Name Identification Medical Record Reconciled With Observations I have been doing the exercises, at least 2-3x a day and no pain Patient/Caregiver Excellent Compliance with Home Exercise Program - Objective Short Term Goals 1. Patient will demonstrate proper performance of a home isometric stabilization program (including IR, ER, flexion, adduction in neutral) independently, in order to improve neuromuscular control and minimize anterior joint stress during daily activities within 5 weeks. 2. Patient will tolerate AROM of the left shoulder to = 140? flexion and =120? abduction with pain </=2/10 and without signs of instability or compensatory movement patterns to support basic self-care and work-related reaching tasks within 5 weeks. 3. Patient will verbalize understanding of 3+ provocative shoulder positions (e.g., abduction with external rotation) and demonstrate appropriate joint protection strategies during simulated work or daily tasks with 100% accuracy within 5 weeks. Retirement Goals 1. Patient will engage in moderate-load simulated job tasks (e.g., lifting, pushing, pulling <25 lbs at waist to chest height) with proper biomechanics and joint positioning, without symptom provocation or apprehension within 10 weeks. 2. Patient will report perceived increase in independence during functional use of the shoulder and reduced fear of instability during work and recreational activities as demonstrated by a quickDASH score of </=15 for all areas within 10 weeks. 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 Kinesiotape was applied to the left shoulder using a stabilizing pattern to reinforce glenohumeral positioning and proprioceptive input. Patient reported a positive response to taping with subjective increase in stability during movement. He reports consistent compliance with his home exercise program (HEP) and verbalized that he believes it has contributed to improved joint control and decreased shoulder discomfort. 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 During today?s session, patient completed 1 full set of all HEP exercises independently with good form. He was also educated on the K-tape application technique, provided a printed handout for independent use, and verbalized good understanding of taping protocol and exercise purpose. - Assessment Patient Response to Good Treatment Rehabilitation Good Potential Impairments Body Mechanics,Functional Activities,Motor Function, Identified Pain,Range of Motion,Recreational Activities,Meaningful Activities,Insight,Work Capacity,Soft Tissue Mobility Progress Towards Good Progress Goals Assessment of Improving Overall Progress Assessment of Patient continues to present with anterior shoulder Improvement instability, status-post recurrent dislocations, with subjective reports of increased stability, improvements in neuromuscular control, and reduced pain. While his occupation limits full rest or activity restriction, patient demonstrates insight into positioning and movement strategies to protect the joint and has remained compliant with his stabilization-focused HEP. His tolerance for taping and therapeutic exercise, along with appropriate modifications in daily tasks, reflect good rehabilitation potential. Patient will benefit from continued skilled OT to advance the complexity of proprioceptive and scapular stabilization activities, ensure safe progression of exercises, reinforce protective joint mechanics, and reduce risk of future dislocation as functional demands increase. Reviewed with Goals,Progress Being Made,Home Exercise Program Patient/Caregiver Patient/Caregiver Fair Understanding - Plan Therapy Continue with Current Program Recommendations Amount of Therapy 2-3 Months Recommended Frequency of Once a Week Treatment Length of Session 45 Minutes Therapeutic Contents Active Range of Motion,Client Education,Functional Activities,Home Exercise Program,Joint Protection, Manual Therapy,Education,Neuromuscular Re-Education, Self-Care,Stretching/Flexibility Activities,Therapeutic Activities,Therapeutic Exercises,Modalities Types of Modalities Ice Massage,Other Additional Types of MHP, KT tape Modalities
--- NOTE | 2024-09-11 11:23 | OT.OP.TRT ---
Visit Care Team Role Provider Type Eufemia Mondragon DO Attending Provider Physician Family Provider Primary Care Provider Referring Provider Specialty: Medical Address: [address] [place] [address], [address], [place], [address] Email: [email or web address] Occupational Therapy Treatment Note OT Outpatient Treatment Note - Adult Start: 08/12/24 12:15 Freq: Status: Active Protocol: Document 09/11/24 09:45 (Rec: 09/11/24 11:22 [id number]) OT Outpatient Adult Treatment Note Session Time Visit Start Date 09/11/24 Visit Start Time 09:45 Visit Stop Time 10:30 Visit Information Visit Number 3 of 10 Plan of Care Dates 08/12/24-10/21/24 Insurance no pre-auth;no copay/deductible;max 12 OT visits Information Setting Treatment Setting Outpatient Care Visit Type Note Type Treatment Note - Subjective Identification Type Name Identification Medical Record Reconciled With Observations I notice it feeling like it may slip sometimes when I am shoveling but I tray to adjust my positioning as much as I can. Patient/Caregiver Excellent Compliance with Home Exercise Program - Objective Short Term Goals 1. Patient will demonstrate proper performance of a home isometric stabilization program (including IR, ER, flexion, adduction in neutral) independently, in order to improve neuromuscular control and minimize anterior joint stress during daily activities within 5 weeks. 2. Patient will tolerate AROM of the left shoulder to = 140? flexion and =120? abduction with pain </=2/10 and without signs of instability or compensatory movement patterns to support basic self-care and work-related reaching tasks within 5 weeks. 3. Patient will verbalize understanding of 3+ provocative shoulder positions (e.g., abduction with external rotation) and demonstrate appropriate joint protection strategies during simulated work or daily tasks with 100% accuracy within 5 weeks. Alf Goals 1. Patient will engage in moderate-load simulated job tasks (e.g., lifting, pushing, pulling <25 lbs at waist to chest height) with proper biomechanics and joint positioning, without symptom provocation or apprehension within 10 weeks. 2. Patient will report perceived increase in independence during functional use of the shoulder and reduced fear of instability during work and recreational activities as demonstrated by a quickDASH score of </=15 for all areas within 10 weeks. - Treatment 1 Descriptor Patient concerned with how significant of a SLAP lesion he had. He was provided targeted education on the function and anatomy of the superior labrum and the nature of SLAP tears, including the interpretation of his 07/10/24 MRI findings. Discussion emphasized the likelihood of a lower-grade SLAP lesion without biceps anchor involvement, helping to clarify why traditional resisted biceps activity remains contraindicated despite intact rotator cuff function. Patient had questions about referred pain and was educated on the biomechanical strain that can be transferred to the contralateral arm and elbow due to compensatory use. He was reassured that elbow pain may be secondary to altered loading patterns and not directly due to the SLAP tear. Additionally, kinesiotape was reapplied to the left shoulder using a deltoid-stabilizing pattern. Patient reports significant benefit from previous applications and verbalized interest in learning self- application. Tape was applied without skin irritation or discomfort and reinforced for wear care and monitoring. Exercises 1 Descriptor HEP progressed as follows: 1. Wall Slides in Scapular Plane: 2x10 reps ? Elevation limited to ~90?, focusing on scapular upward rotation and control 2. Sboh-py-Wssh Alphabet: 1 set of A-Z (clockwise and counterclockwise) ? Performed just below shoulder height, maintaining scapular engagement 3. Scapular Clocks on Wall with resistive band:2 sets of 1 full round (12-3-6-9) with light hand contact on wall ? Shoulder blade control emphasized, avoiding shrugging 4. Scapular Retractions (Shoulder Blade Squeezes): 2 x10 reps, 5-second hold each ? Verbal cues provided to avoid upper trap substitution 5. Mini Wall Push-Ups (Scapular):2 x 10 reps ? Small range protraction/retraction only, hands just below shoulder height, performed with good alignment 6. Resistance Band Isometrics (IR/ER in Neutral):2 x10 reps each direction, 5-second hold per rep ? Light blue band used; performed without symptom provocation 7. Modified Table Plank Hold: 3 reps of 10-second holds ? Hands on treatment table with shoulder in closed- chain; no instability noted - Assessment Patient Response to Good Treatment Rehabilitation Good Potential Impairments Body Mechanics,Functional Activities,Motor Function, Identified Pain,Range of Motion,Recreational Activities,Meaningful Activities,Insight,Work Capacity,Soft Tissue Mobility Progress Towards Good Progress Goals Assessment of Improving Overall Progress Assessment of Patient continues to present with anterior shoulder Improvement instability following multiple dislocations and confirmed labral pathology, including a SLAP lesion and bony Bankart injury. He demonstrates strong engagement in therapy and consistent compliance with his home exercise program. 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 Reports of occasional instability during heavy tasks (e.g., shoveling) suggest continued capsular laxity and the need for ongoing neuromuscular training. Patient shows appropriate understanding of joint protection strategies and is incorporating therapeutic concepts into daily activity. Continued skilled OT is recommended to further progress joint stabilization, increase endurance in closed-chain control tasks, and support safe reintegration into high -demand occupational functions without recurrence of dislocation. Reviewed with Goals,Progress Being Made,Home Exercise Program Patient/Caregiver Patient/Caregiver Fair Understanding - Plan Therapy Continue with Current Program Recommendations Amount of Therapy 2-3 Months Recommended Frequency of Once a Week Treatment Length of Session 45 Minutes Therapeutic Contents Active Range of Motion,Client Education,Functional Activities,Home Exercise Program,Joint Protection, Manual Therapy,Education,Neuromuscular Re-Education, Self-Care,Stretching/Flexibility Activities,Therapeutic Activities,Therapeutic Exercises,Modalities Types of Modalities Ice Massage,Other Additional Types of MHP, KT tape Modalities
--- NOTE | 2024-09-11 11:47 | OT.OPPN ---
Current Diagnoses Other dislocation of left shoulder joint, subsequent encounter (09/11/24) OT Progress Note OT Outpatient Treatment Note - Adult Start: 08/12/24 12:15 Freq: Status: Active Protocol: Document 09/11/24 09:45 (Rec: 09/11/24 11:22 [id number]) OT Outpatient Adult Treatment Note Session Time Visit Start Date 09/11/24 Visit Start Time 09:45 Visit Stop Time 10:30 Visit Information Visit Number 3 of 10 Plan of Care Dates 08/12/24-10/21/24 Insurance no pre-auth;no copay/deductible;max 12 OT visits Information Setting Treatment Setting Outpatient Care Visit Type Note Type Progress Note - Subjective Identification Type Name Identification Medical Record Reconciled With Observations I notice it feeling like it may slip sometimes when I am shoveling but I tray to adjust my positioning as much as I can. Patient/Caregiver Excellent Compliance with Home Exercise Program - Objective Short Term Goals 1. Patient will demonstrate proper performance of a home isometric stabilization program (including IR, ER, flexion, adduction in neutral) independently, in order to improve neuromuscular control and minimize anterior joint stress during daily activities within 5 weeks. [ PROGRESSING 09/11/24] 2. Patient will tolerate AROM of the left shoulder to = 140? flexion and =120? abduction with pain </=2/10 and without signs of instability or compensatory movement patterns to support basic self-care and work-related reaching tasks within 8 weeks. [PROGRESSING - extended from 6 to 8 weeks 09/11/24] 3. Patient will verbalize understanding of 3+ provocative shoulder positions (e.g., abduction with external rotation) and demonstrate appropriate joint protection strategies during simulated work or daily tasks with 100% accuracy within 5 weeks. [MET 09/11/24] Intermediate Goals 1. Patient will engage in moderate-load simulated job tasks (e.g., lifting, pushing, pulling <25 lbs at waist to chest height) with proper biomechanics and joint positioning, without symptom provocation or apprehension within 10 weeks. [PROGRESSING 09/11/24] 2. Patient will report perceived increase in independence during functional use of the shoulder and reduced fear of instability during work and recreational activities as demonstrated by a quickDASH score of </=15 for all areas within 10 weeks. [ PROGRESSING 09/11/24] - Treatment 1 Descriptor Patient concerned with how significant of a SLAP lesion he had. He was provided targeted education on the function and anatomy of the superior labrum and the nature of SLAP tears, including the interpretation of his 07/10/24 MRI findings. Discussion emphasized the likelihood of a lower-grade SLAP lesion without biceps anchor involvement, helping to clarify why traditional resisted biceps activity remains contraindicated despite intact rotator cuff function. Patient had questions about referred pain and was educated on the biomechanical strain that can be transferred to the contralateral arm and elbow due to compensatory use. He was reassured that elbow pain may be secondary to altered loading patterns and not directly due to the SLAP tear. Additionally, kinesiotape was reapplied to the left shoulder using a deltoid-stabilizing pattern. Patient reports significant benefit from previous applications and verbalized interest in learning self- application. Tape was applied without skin irritation or discomfort and reinforced for wear care and monitoring. Exercises 1 Descriptor HEP progressed as follows: 1. Wall Slides in Scapular Plane: 2x10 reps ? Elevation limited to ~90?, focusing on scapular upward rotation and control 2. Pzhm-ic-Bouk Alphabet: 1 set of A-Z (clockwise and counterclockwise) ? Performed just below shoulder height, maintaining scapular engagement 3. Scapular Clocks on Wall with resistive band:2 sets of 1 full round (12-3-6-9) with light hand contact on wall ? Shoulder blade control emphasized, avoiding shrugging 4. Scapular Retractions (Shoulder Blade Squeezes): 2 x10 reps, 5-second hold each ? Verbal cues provided to avoid upper trap substitution 5. Mini Wall Push-Ups (Scapular):2 x 10 reps ? Small range protraction/retraction only, hands just below shoulder height, performed with good alignment 6. Resistance Band Isometrics (IR/ER in Neutral):2 x10 reps each direction, 5-second hold per rep ? Light blue band used; performed without symptom provocation 7. Modified Table Plank Hold: 3 reps of 10-second holds ? Hands on treatment table with shoulder in closed- chain; no instability noted - Assessment Patient Response to Good Treatment Rehabilitation Good Potential Impairments Body Mechanics,Functional Activities,Motor Function, Identified Pain,Range of Motion,Recreational Activities,Meaningful Activities,Insight,Work Capacity,Soft Tissue Mobility Progress Towards Good Progress Goals Assessment of Improving Overall Progress Assessment of Patient continues to present with anterior shoulder Improvement instability following multiple dislocations and confirmed labral pathology, including a SLAP lesion and bony Bankart injury. He demonstrates strong engagement in therapy and consistent compliance with his home exercise program. 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 Reports of occasional instability during heavy tasks (e.g., shoveling) suggest continued capsular laxity and the need for ongoing neuromuscular training. Patient shows appropriate understanding of joint protection strategies and is incorporating therapeutic concepts into daily activity. Continued skilled OT is recommended to further progress joint stabilization, increase endurance in closed-chain control tasks, and support safe reintegration into high -demand occupational functions without recurrence of dislocation. Reviewed with Goals,Progress Being Made,Home Exercise Program Patient/Caregiver Patient/Caregiver Fair Understanding - Plan Therapy Continue with Current Program Recommendations Amount of Therapy 2-3 Months Recommended Frequency of Once a Week Treatment Length of Session 45 Minutes Therapeutic Contents Active Range of Motion,Client Education,Functional Activities,Home Exercise Program,Joint Protection, Manual Therapy,Education,Neuromuscular Re-Education, Self-Care,Stretching/Flexibility Activities,Therapeutic Activities,Therapeutic Exercises,Modalities Types of Modalities Ice Massage,Other Additional Types of MHP, KT tape Modalities If you are in agreement with this Plan of Care, please return a signed and dated copy. I have reviewed this Plan of Care and certify that the skilled therapy services above are required to meet the patient?s needs. Physician Signature Date Printed Name and Credentials Clinical Instructor Signature Printed Name and Credentials
--- NOTE | 2024-10-14 15:22 | OT.OP.DC ---
Visit Care Team Role Provider Type Eufemia Mondragon DO Attending Provider Physician Family Provider Primary Care Provider Referring Provider Address: [address] [place] [address], [address], [place], [address] Email: [email or web address] Outpatient OT Outpatient Adult Evaluation Start: 08/12/24 12:15 Freq: Status: Active Protocol: Document 08/12/24 15:15 (Rec: 08/12/24 12:36 [id number]) General Information - Adult Visit Information Visit Number 1 of 10 Plan of Care Dates 08/12/24-10/21/24 Insurance no pre-auth;no copay/deductible;max 12 OT visits, Information including 1 OT eval Session Time Visit Start Date 08/12/24 Visit Start Time 16:10 Visit Stop Time 17:10 Setting Treatment Setting Outpatient Care Visit Type Note Type Initial Evaluation Referral Referring Physician Dr. Eufemia Mondragon Reason for Referral Recurrent dislocation of left shoulder joint Precautions None provided, will clarify with provider Identification Identification Yes Confirmed Identification EMR Confirmed By Medical Information Medical History h/o L shoulder labral tear 7 years ago, pt reports 3 dislocations of L shoulder Social Information Social History I am very motivated to do whatever I need to do to avoid surgery Patient Questionnaires Quick Dash- Upper Extremity Quick Dash UE Score 27.3 Quick Dash UE 20 to 39% Impaired (Score 20-39) Impairment Quick Dash- Work and Sports Modules Quick Dash W&S Score W: 25, S: 37.5 Quick Dash Work and 20 to 39% Impaired (Score 20-39) Sport Impairment OT Outpatient Observations Observations Observations On examination, patient demonstrates full active range of motion of the left shoulder without compensatory strategies, and gross strength is 5/5 in all planes with no pain reported at rest or during testing. No visible deformity, swelling, or muscle guarding noted. Patient reports intermittent episodes of sharp discomfort or instability during spontaneous movements, particularly in overhead or externally rotated positions. QuickDASH scores indicate mild to moderate disability: 27.3 (general), 25 (work), and 37.5 (sports ). He currently works in construction and does not have an option for modified or light duty work; he reports engaging in regular activities aside from avoiding heavy lifting or positions that feel ?unstable.? Patient has been independently performing pendulum exercises, scapular retraction, and wall slides. Swelling Severity None Goals Treatment Treatment Patient was educated on shoulder joint anatomy and the nature of anterior instability, including the significance of recent MRI findings (Bankart lesion, Hill-Sachs deformity, and SLAP tear). Emphasis was placed on the importance of joint protection, especially while tissues are still in the acute and healing phase, and clarification was provided regarding the difference between muscular strength and dynamic joint stability. Education addressed how continued high -level activity, despite full strength, could lead to further structural compromise if not paired with proper neuromuscular re-education. Therapist introduced and demonstrated isometric exercises in neutral (shoulder flexion, adduction, IR, and ER), as well as closed- chain proprioceptive activity ([id number] stability drill), all performed with appropriate technique and good tolerance. Therapist reviewed risk-prone joint positions (e.g., overhead combined with external rotation) and advised caution in work and sport- specific tasks. Patient demonstrated good carryover and understanding with moderate verbal reinforcement and agreed to adhere to a modified HEP designed to promote capsular stability. Short Term Goals Short Term Goals 1. Patient will demonstrate proper performance of a home isometric stabilization program (including IR, ER, flexion, adduction in neutral) independently, in order to improve neuromuscular control and minimize anterior joint stress during daily activities within 5 weeks. 2. Patient will tolerate AROM of the left shoulder to = 140? flexion and =120? abduction with pain </=2/10 and without signs of instability or compensatory movement patterns to support basic self-care and work-related reaching tasks within 5 weeks. 3. Patient will verbalize understanding of 3+ provocative shoulder positions (e.g., abduction with external rotation) and demonstrate appropriate joint protection strategies during simulated work or daily tasks with 100% accuracy within 5 weeks. Half-Way Goals Senior Animal Trainer Goals 1. Patient will engage in moderate-load simulated job tasks (e.g., lifting, pushing, pulling <25 lbs at waist to chest height) with proper biomechanics and joint positioning, without symptom provocation or apprehension within 10 weeks. 2. Patient will report perceived increase in independence during functional use of the shoulder and reduced fear of instability during work and recreational activities as demonstrated by a quickDASH score of </=15 for all areas within 10 weeks. Assessment/Plan Assessment Patient Response Good Rehabilitation Good Potential Impairments Body Mechanics,Functional Activities,Motor Function, Identified Pain,Range of Motion,Recreational Activities,Meaningful Activities,Insight,Work Capacity,Soft Tissue Mobility Treatment Assessment 29 year old [id number] male referred by Dr. Eufemia Mondragon after recent recurrent L shoulder dislocations on 06/28 and 07/06. Pt with a history of left shoulder labral repair in 2016, presenting today approximately 3 weeks post-anterior dislocation sustained during a baseball slide, followed by a second dislocation one week later while sleeping in prone. Pt with recurrent anterior shoulder instability following two recent dislocations and pt reporting a remote dislocation prior, one of which occurred during low- load activity (sleeping), highlighting the underlying capsular laxity and labral compromise. MRI confirms a Bankart lesion, Hill-Sachs deformity, and SLAP tear, placing the joint at high risk for future dislocations if not properly rehabilitated. While gross strength and range of motion are currently intact, the patient reports functional apprehension and positional pain consistent with capsulolabral instability. Despite returning to full activity without formal therapy or physician-directed restrictions, patient is now seeking conservative intervention to avoid surgical repair. Given his physically demanding occupation and lack of activity modification, skilled OT is medically necessary to provide joint-protective education, neuromuscular re-education, proprioceptive retraining, and a graded stabilization program to prevent re-injury . Patient demonstrated insight into the risks after education, and therapeutic goals will focus on promoting joint congruency, improving dynamic shoulder stability, and preventing dislocation during work and sport. Continued skilled OT intervention is warranted to ensure appropriate progression and to facilitate safe reintegration into high-demand functional roles while minimizing risk of further labral or capsular compromise. Home Exercise Pendulum exercises, table slides, wall slides, shoulder Program squeezes, Isometric shoulder flexion/abduction/ internal rotation/external rotation, ball on wall prop ex. Reviewed with Goals,Progress Being Made,Home Exercise Program Patient Patient Fair Understanding Plan Length of treatment 10 (weeks) Plan of Care Start 08/12/24 Date Plan of Care End 10/21/24 Date Treatment Frequency Once a Week Treatment Duration 45 Minutes Therapeutic Contents Active Range of Motion,Client Education,Functional Activities,Home Exercise Program,Joint Protection, Manual Therapy,Education,Neuromuscular Re-Education, Self-Care,Stretching/Flexibility Activities,Therapeutic Activities,Therapeutic Exercises,Modalities Modalities As Needed Types of Modalities Ice Massage,Other Additional Types of MHP, KT tape Modalities Patient Instruction Home Exercise Program,Plan of Care,Questions/Concerns Patient Continue with Current Program Recommendations Functional Wrist/Hand Scan Hand Side Sensory Assessment Sensory Profile2 OT Outpatient Treatment Note - Adult Start: 08/12/24 12:15 Freq: Status: Active Protocol: Document 10/14/24 15:16 (Rec: 10/14/24 15:21 [id number]) OT Outpatient Adult Treatment Note Visit Information Plan of Care Dates 08/12/24-10/21/24 Insurance no pre-auth;no copay/deductible;max 12 OT visits Information Setting Treatment Setting Outpatient Care Visit Type Note Type Discharge Summary General Information General Information Pt seen for eval and 2 treatments without attempt to schedule follow up in greater than 30 days. Pt did not complete treatment or progress on goals due to lack of follow up. Pt would likely still benefit from skilled therapy for increased strengthening and stability of shoulder. If pt continues to demonstrate functional deficits, a new referral can be obtained once schedule permits compliance with POC - - Objective Short Term Goals 1. Patient will demonstrate proper performance of a home isometric stabilization program (including IR, ER, flexion, adduction in neutral) independently, in order to improve neuromuscular control and minimize anterior joint stress during daily activities within 5 weeks. [ NOT MET 10/14/24] 2. Patient will tolerate AROM of the left shoulder to = 140? flexion and =120? abduction with pain </=2/10 and without signs of instability or compensatory movement patterns to support basic self-care and work-related reaching tasks within 8 weeks. [NOT MET 10/14/24] 3. Patient will verbalize understanding of 3+ provocative shoulder positions (e.g., abduction with external rotation) and demonstrate appropriate joint protection strategies during simulated work or daily tasks with 100% accuracy within 5 weeks. [MET 09/11/24] Senior Animal Trainer Goals 1. Patient will engage in moderate-load simulated job tasks (e.g., lifting, pushing, pulling <25 lbs at waist to chest height) with proper biomechanics and joint positioning, without symptom provocation or apprehension within 10 weeks. [NOT MET 10/14/24] 2. Patient will report perceived increase in independence during functional use of the shoulder and reduced fear of instability during work and recreational activities as demonstrated by a quickDASH score of </=15 for all areas within 10 weeks. [NOT MET 10/14/24] - - Assessment Patient Response to Fair Treatment Rehabilitation Fair Potential Impairments Body Mechanics,Functional Activities,Motor Function, Identified Pain,Range of Motion,Recreational Activities,Meaningful Activities,Insight,Work Capacity,Soft Tissue Mobility Progress Towards Delayed Progress,Appropriate for Discharge Goals Assessment of Plateaued Overall Progress Patient/Caregiver Fair Understanding - Plan Therapy Discharge from Occupational Therapy Recommendations Amount of Therapy No Further Therapy Recommended Frequency of No Further Therapy Treatment Therapeutic Contents Active Range of Motion,Client Education,Functional Activities,Home Exercise Program,Joint Protection, Manual Therapy,Education,Neuromuscular Re-Education, Self-Care,Stretching/Flexibility Activities,Therapeutic Activities,Therapeutic Exercises,Modalities Types of Modalities Ice Massage,Other Additional Types of MHP, KT tape Modalities
== END 2024-10-19 09:31 | disposition home or self-care (01) ==
LOC: OT 09:00
PROVIDERS: Family Provider Family Medicine; PCP Family Medicine; Referring Provider Family Medicine; Visit Provider Family Medicine
DX: S43.085D Other dislocation of left shoulder joint, subsequent encounter (principal)
CPT/HCPCS: 97110; 97165; 97530